=== PATIENT | male | born 1985 | race Caucasian/White ===

== ENCOUNTER → 2017-05-24 | Outpatient (CLI) | payer BC, OTHER | END | disposition home or self-care (01) | LOC: C.LABSPEC 17:42 | PROVIDERS: ATTEND Family Medicine | DX: J02.9 Acute pharyngitis, unspecified (principal) ==

== ENCOUNTER 2017-06-13 17:16 | Emergency (ER) | payer OTHER ==
[~2017-06-13] VITALS: Ht 175.3 cm; Wt 60.6 kg
[2017-06-13 17:27] VITALS: TEMP 36.7; Ht 175.3 cm; Wt 60.6 kg
[2017-06-13] MEDS ORDERED: IBUPROFEN 600 MG TAB PO STA (18:39)
--- NOTE | 2017-06-13 18:58 | DIAGNOSTIC IMAGING REPORT ---
L-SPINE MIN 4 VIEWS ROUTINE CLINICAL HISTORY: 31 years-old Male presenting with low back pain, fall. TECHNIQUE: Frontal, bilateral oblique, lateral, and coned in lateral views of the lumbar spine were obtained. COMPARISON: None. FINDINGS: No scoliosis. Normal lower lumbar lordosis. Vertebral bodies maintain normal height and alignment. Intervertebral disc spaces preserved. Minimal endplate concavity is may suggest few Schmorl's nodes. No advanced degenerative change. No radiographic evidence of osseous neural foraminal narrowing. No compression deformity or subluxation is apparent. No pars defect. Mild stool burden throughout the colon. IMPRESSION: Normal lumbar spine. Electronically signed by: Los Rangel M.D. 06/13/2017 6:57 PM Dictated Date/Time: 06/13/2017 6:56 PM
--- NOTE | 2017-06-13 18:59 | DIAGNOSTIC IMAGING REPORT ---
L PELVIS/UNILATERAL HIP 2-3VIEWS CLINICAL HISTORY: 31 years-old Male presenting with fall, left hip pain, fell out of tree. TECHNIQUE: Single frontal view of the pelvis and frontal and frog-leg lateral views of the left hip were obtained. COMPARISON: None. FINDINGS: Pubic symphysis and sacroiliac joints congruent. Bony pelvis intact. Lower lumbar spine normal. Arcuate lines intact. Bilateral hip joints congruent. Specifically, the left hip demonstrates no acute fracture or malalignment. No degenerative change. No radiographic soft tissue abnormality. IMPRESSION: No acute osseous injury of the pelvis or left hip. Electronically signed by: Los Rangel M.D. 06/13/2017 6:58 PM Dictated Date/Time: 06/13/2017 6:57 PM
--- NOTE | 2017-06-13 20:19 | EMERGENCY ROOM VISIT NOTE ---
History First contact with patient: 17:28 Chief Complaint: FALL Stated Complaint: FELL OUT OF TREE; LEG, BACK, HIP PAIN History of Present Illness The patient is a 31 year old male who presents to the Emergency Room with complaints of low back and left hip pain. The patient reports that he was cutting a tree and slid down the tree, falling onto his left leg and low back. He did fall backward onto the ground afterward. He reports pain in the low back and left hip rated a 5/10. He denies any pain in the lower left leg or left foot. He has not taken any medication for pain. He denies any numbness or weakness. Review of Systems A complete 10 point review of systems was reviewed with the patient with pertinent positives and negatives as per history of present illness. All else were negative. Social History Smoking Status: Never Smoker Current/Historical Medications No Active Prescriptions or Reported Meds Physical Exam Vital Signs Date Time Temp Pulse Resp B/P (MAP) Pulse Ox O2 Delivery O2 Flow Rate FiO2 06/13/17 20:28 81 18 135/82 99 06/13/17 18:53 78 18 108/68 98 Room Air 06/13/17 17:27 36.7 91 16 101/55 95 Room Air Physical Exam VITALS: Vitals are noted on the nurse's note and reviewed by myself. Vital signs stable. GENERAL: This is a 31-year-old male, in no acute distress, nondiaphoretic, well- developed well-nourished. HEART: Regular rate and rhythm without murmurs gallops or rubs. LUNGS: Clear to auscultation bilaterally without wheezes, rales or rhonchi. ABDOMEN: No tenderness to palpation. MUSCULOSKELETAL: There is vague tenderness to palpation of the left lumbar region and left hip. Full range of motion. Strength 5/5 in bilateral lower extremities. NEURO: Patient was alert and oriented to person place and time. Normal sensation to light and sharp touch. Patellar reflexes 2+ bilaterally. Medical Decision & Procedures ER Provider Diagnostic Interpretation: L-SPINE MIN 4 VIEWS ROUTINE FINDINGS: No scoliosis. Normal lower lumbar lordosis. Vertebral bodies maintain normal height and alignment. Intervertebral disc spaces preserved. Minimal endplate concavity is may suggest few Schmorl's nodes. No advanced degenerative change. No radiographic evidence of osseous neural foraminal narrowing. No compression deformity or subluxation is apparent. No pars defect. Mild stool burden throughout the colon. IMPRESSION: Normal lumbar spine. L PELVIS/UNILATERAL HIP 2-3VIEWS FINDINGS: Pubic symphysis and sacroiliac joints congruent. Bony pelvis intact. Lower lumbar spine normal. Arcuate lines intact. Bilateral hip joints congruent. Specifically, the left hip demonstrates no acute fracture or malalignment. No degenerative change. No radiographic soft tissue abnormality. IMPRESSION: No acute osseous injury of the pelvis or left hip. Medications Administered Medications (Trade) Dose Ordered Sig/Lisandro Route Start Time Stop Time Status Last Admin Dose Admin Ibuprofen (Motrin Tab) 600 mg NOW STAT PO 06/13/17 18:39 06/13/17 18:40 DC 06/13/17 18:52 600 MG Medical Decision The patient was evaluated as above. X-rays of the lumbar spine and pelvis/left hip were obtained and read by radiology with no acute findings. Patient has no neurological findings on exam. I do not feel CT is necessary. He has no midline tenderness of the lumbar spine. He is able to bear weight. He was given ibuprofen with some relief of the pain. The patient had developed a headache on reassessment but states this was similar to typical migraines. He was offered treatment but prefers to try Tylenol at home. He was instructed to follow-up with his primary care provider for further evaluation of any ongoing or worsening pain. He verbalized understanding of my assessment and treatment plan and was discharged home in good condition. Medication Reconcilliation Current Medication List: was personally reviewed by me Blood Pressure Screening Patient's blood pressure: Normal blood pressure Impression Primary Impression: Lumbar back pain Additional Impression: Fall from tree Departure Information Dispostion Home / Self-Care Condition GOOD Prescriptions No Active Prescriptions or Reported Meds Referrals Brenda Desir MD (PCP) Patient Instructions My [facility] Additional Instructions For pain control, you can use the following [id number] medicines (if >12 yo): - Regular strength (325mg/tab) Tylenol (acetaminophen) 2 tabs every 4-6 hours as needed. Do not exceed 12 tablets in a 24 hour period. Avoid taking more than 4 grams (4000 mg) of Tylenol per day. This includes any other sources of acetaminophen you may take on a regular basis. - Regular strength (200 mg/tab) Advil (ibuprofen) 1-2 tabs every 4-6 hours as needed. Do not exceed a dose of 3200 mg per day. Apply ice to the back as needed for pain. Rest. No strenuous activity for the next few days until your pain has resolved. If you have persistent or worsening pain in the back/leg, you should follow-up with your primary care provider or return here for further evaluation. Return here immediately for any numbness, weakness or other change in sensation. Problem Qualifiers Additional Impression: Fall from tree Encounter type: initial encounter Qualified Codes: W14.XXXA - Fall from tree , initial encounter
[2017-06-13 20:28] VITALS: BP 135/82; PULSE 81; O2SAT 99
== END 2017-06-13 20:28 | disposition home or self-care (01) ==
LOC: C.EDB 17:17
DX: M54.5 Low back pain (principal); W14.XXXA Fall from tree, initial encounter; Y92.89 Other specified places as the place of occurrence of the external cause